=== PATIENT | female | born 1960 | race African-American/Black ===

== ENCOUNTER 2018-05-30 11:13 | Emergency (ER) | payer MEDICAID, OTHER ==
[~2018-05-30] VITALS: Ht 162.6 cm; Wt 75.0 kg
[2018-05-30] MEDS ORDERED: IBUPROFEN (11:23)
[2018-05-30] MEDS ORDERED: ACETAMINOPHEN 325MG TABLET PO STA (11:44)
[2018-05-30] MEDS ORDERED: MAGNESIUM/ALUMINUM HYDROXIDE/SIMETHICONE 30ML UDC PO STA (11:44)
[2018-05-30] MEDS ORDERED: IBUPROFEN 600MG TABLET PO STA (11:44)
[2018-05-30 11:58] LABS: BASOPHILS % 0.4 % (0.0-2.0); EOSINOPHILS % 2.6 % (0.0-5.0); HEMATOCRIT. 39.2 % (36.0-48.0); HEMOGLOBIN. 13.3 g/dL (12.0-16.0); LYMPHOCYTES % 39.7 % (20.0-50.0); MEAN CORPUSCULAR HEMOGLOBIN 28.8 pg (28.0-32.0); MEAN CORPUSCULAR VOLUME 84.7 fL (81.0-99.0); MEAN PLATELET VOLUME 6.8 fl (7.4-10.4); MONOCYTES % 4.5 % (2.0-8.0); NEUTROPHILS % 52.8 % (40.0-76.0); PLATELET 283 x1000/uL (130-400); RED BLOOD CELL COUNT 4.63 mill/uL (4.2-5.4); RED CELL DISTRIBUTION WIDTH 13.6 % (11.6-14.6)
[2018-05-30 12:04] LABS: CHLORIDE 105 mEq/L (98-107)
[2018-05-30 12:05] LABS: PROTHROMBIN TIME 10.1 sec (9.1-11.1)
[2018-05-30 12:56] LABS: CLARITY URINE CLEAR (CLEAR); COLOR URINE YELLOW (YELLOW); KETONES URINE NEGATIVE (NEGATIVE); LEUKOCYTE ESTERASE URINE NEGATIVE (NEGATIVE); NITRITE URINE NEGATIVE (NEGATIVE); OCCULT BLOOD URINE 1+ (NEGATIVE); PROTEIN URINE NEGATIVE (NEGATIVE); SPECIFIC GRAVITY URINE 1.021 (1.005-1.030)
[2018-05-30 14:45] VITALS: BP 128/85
== END 2018-05-30 14:49 | disposition home or self-care (01) ==
LOC: ER 11:35
DX: R11.0 Nausea (principal); Z88.0 Allergy status to penicillin; Z88.1 Allergy status to other antibiotic agents
CPT/HCPCS: 36415; 76700; 80053; 81003; 83690; 85025; 85610; 93005; 99285

== ENCOUNTER 2021-01-11 17:12 | Emergency (ER) | payer MEDICAID ==
[~2021-01-11] VITALS: Ht 165.1 cm; Wt 65.0 kg
[~2021-01-11 17:12] MED LIST: IBUPROFEN
[2021-01-11 18:18] LABS: BASOPHILS % 0.3 % (0.0-2.0); EOSINOPHILS % 2.4 % (0.0-5.0); HEMOGLOBIN. 12.6 g/dL (12.0-16.0); LYMPHOCYTES % 21.2 % (20.0-50.0); MEAN CORPUSCULAR HEMOGLOBIN 29.6 pg (28.0-32.0); MEAN CORPUSCULAR VOLUME 87.3 fL (81.0-99.0); MONOCYTES % 5.3 % (2.0-8.0); NEUTROPHILS % 70.8 % (40.0-76.0); PLATELET 306 x1000/uL (130-400); RED BLOOD CELL COUNT 4.24 mill/uL (4.2-5.4); RED CELL DISTRIBUTION WIDTH 13.8 % (11.6-14.6)
[2021-01-11 18:20] LABS: CHLORIDE 106 mEq/L (98-107)
[2021-01-11 19:30] VITALS: BP 154/94
== END 2021-01-11 20:01 | disposition home or self-care (01) ==
LOC: ER 17:12
DX: R07.89 Other chest pain (principal); Z88.0 Allergy status to penicillin
CPT/HCPCS: 36415; 71045; 80053; 83735; 83880; 84484; 85025; 93005; 99285; Z7610

== ENCOUNTER 2024-01-12 13:29 | Emergency (ER) | payer MEDICAID ==
[~2024-01-12] VITALS: Ht 167.6 cm; Wt 77.0 kg
[2024-01-12 13:38] VITALS: O2SAT 100
[2024-01-12] MEDS: HYDROCODONE/ACETAMINOPHEN 5/325MG TABLET PO STA (16:19)
[2024-01-12] MEDS: IBUPROFEN 600MG TABLET PO STA (16:25)
[2024-01-12] MEDS ORDERED: NAPR-681 PO (16:49)
[2024-01-12] MEDS ORDERED: CYCL5TAB MT (16:49)
[2024-01-12 16:55] VITALS: BP 131/74; PULSE 85; RESP 17; TEMP 98.1
== END 2024-01-12 17:02 | disposition home or self-care (01) ==
LOC: ER 13:46
DX: S16.1XXA Strain of muscle, fascia and tendon at neck level, initial encounter (principal); S39.012A Strain of muscle, fascia and tendon of lower back, initial encounter; R51.9 Headache, unspecified; M25.511 Pain in right shoulder; M25.512 Pain in left shoulder; I10 Essential (primary) hypertension; Z88.0 Allergy status to penicillin; V49.59XA Passenger injured in collision with other motor vehicles in traffic accident, initial encounter; Y93.89 Activity, other specified; Y92.89 Other specified places as the place of occurrence of the external cause; Y99.8 Other external cause status
CPT/HCPCS: 72100; 73030; 99284